=== PATIENT | male | born 1930 | race Caucasian/White ===

== ENCOUNTER → 2016-11-29 | Outpatient (CLI) | payer MEDICARE, BC ==
[~2016-11-29] MED LIST: ACET-1757 PO; ASPI-496 PO; BUPR100T11 PO; BUSP15TA PO; CLOP75TA22 PO; HYDR25TA6 PO; OXYB5TAB7 PO; POTA20PA8 PO; TAMS-11 PO
[2016-11-29 13:01] LABS: ASPARTATE AMINO TRANSFERASE 17 U/L (15-37); BLOOD UREA NITROGEN 14 mg/dL (7-18)
== END | disposition home or self-care (01) ==
LOC: CFH 08:09
PROVIDERS: ATTEND Internal Medicine
DX: I25.10 Atherosclerotic heart disease of native coronary artery without angina pectoris (principal); E78.00 Pure hypercholesterolemia, unspecified; I10 Essential (primary) hypertension
CPT/HCPCS: 36415; 80053; 80061

== ENCOUNTER → 2017-03-15 | Outpatient (CLI) | payer MEDICARE, BC ==
[~2017-03-15] MED LIST changes: -CLOP75TA22 PO; +CLOP75TA52 PO; +POTA20PA25 PO; -POTA20PA8 PO; +REGADENOSON 0.4 MG/5 ML SYRINGE ONE
== END | disposition home or self-care (01) ==
LOC: CFH 09:04
PROVIDERS: ATTEND Internal Medicine Cardiovascular Disease
DX: I10 Essential (primary) hypertension (principal)
CPT/HCPCS: 78452; 93017; A9502; J2785

== ENCOUNTER → 2018-02-09 | Outpatient (CLI) | payer MEDICARE, BC ==
[~2018-02-09] MED LIST changes: -REGADENOSON 0.4 MG/5 ML SYRINGE ONE
[2018-02-09 12:45] LABS: CHLORIDE 101 mmol/L (98-107)
[2018-02-09 13:00] LABS: ALANINE AMINOTRANSFERASE 34 U/L (12-78); ALKALINE PHOSPHATASE 88 U/L (45-117); ANION GAP 8 mmol/L (5-15); CALCIUM 9.2 mg/dL (8.5-10.1); CREATININE 0.89 mg/dL (0.7-1.3); T4 (THYROXINE) 10.3 mcg/dL (4.5-12.1); TOTAL PROTEIN 7.3 g/dL (6.4-8.2)
== END | disposition home or self-care (01) ==
LOC: CFH 08:38
PROVIDERS: ATTEND Internal Medicine Cardiovascular Disease
DX: I10 Essential (primary) hypertension (principal); I25.10 Atherosclerotic heart disease of native coronary artery without angina pectoris; E78.00 Pure hypercholesterolemia, unspecified; E78.2 Mixed hyperlipidemia; F41.8 Other specified anxiety disorders; N62 Hypertrophy of breast; R74.8 Abnormal levels of other serum enzymes; Z95.1 Presence of aortocoronary bypass graft
CPT/HCPCS: 36415; 80053; 84436; 84443; 84481

== ENCOUNTER → 2018-02-15 | Outpatient (CLI) | payer MEDICARE, BC | END | disposition home or self-care (01) | LOC: CFH 10:02 | PROVIDERS: ATTEND Internal Medicine | DX: M51.36 Other intervertebral disc degeneration, lumbar region (principal); M48.061 Spinal stenosis, lumbar region without neurogenic claudication; M54.31 Sciatica, right side | CPT/HCPCS: 72148 ==

== ENCOUNTER → 2018-03-10 | Outpatient (CLI) | payer MEDICARE, BC | END | disposition home or self-care (01) | LOC: CFH 12:55 | PROVIDERS: ATTEND Neurological Surgery | DX: M47.896 Other spondylosis, lumbar region (principal) | CPT/HCPCS: 72100 ==

== ENCOUNTER → 2018-09-29 | Outpatient (CLI) | payer MEDICARE, BC | END | disposition home or self-care (01) | LOC: CVU 10:01 | PROVIDERS: ATTEND Internal Medicine Cardiovascular Disease | DX: M79.662 Pain in left lower leg (principal); M79.661 Pain in right lower leg; I10 Essential (primary) hypertension; I25.10 Atherosclerotic heart disease of native coronary artery without angina pectoris | CPT/HCPCS: 93922 ==

== ENCOUNTER 2019-06-02 10:32 | Emergency (ER) | payer MEDICARE, BC ==
[~2019-06-02] VITALS: Ht 177.8 cm; Wt 90.0 kg
[~2019-06-02 10:32] MED LIST changes: -ACET-1757 PO; +ACET-2065 PO; +OXYB5TAB10 PO; -OXYB5TAB7 PO
[2019-06-02 10:37] VITALS: BP 141/68
--- NOTE | 2019-06-02 10:54 | NUR ---
THIS IS AN 89 YO M W/ C/O BILAT LEG SWELLING/PAIN AND WORSENING SOB. DENIES CP. PATIENTS RESPIRATIONS ARE EVEN AND UNLABORED, PATIENT IS IN NO ACUTE DISTRESS. PATIENT RESTING ON GURNEY AWAITING EVAL FROM PROVIDER. CALL LIGHT IN REACH. DENIES FURTHER NEEDS AT THIS TIME.
[2019-06-02] MEDS ORDERED: MIRA50TA PO (11:12)
[2019-06-02] MEDS ORDERED: LOSA50TA14 PO (11:12)
[2019-06-02] MEDS ORDERED: CHLO25TA PO (11:12)
--- NOTE | 2019-06-02 11:25 | NUR ---
PATIENT BRADYCARDIC AND SUSPICIOUS FOR ABSENT P WAVES WHEN PLACED ON SENIOR PROGRAMMER. NOTIFIED AND EKG ORDERED.
[2019-06-02 12:09] LABS: BASOPHILS # (AUTO) 0.02 x10^3/uL (0-0.1); BASOPHILS % (AUTO) 0 % (0-1); EOSINOPHILS # (AUTO) 0.04 x10^3/uL (0-0.4); EOSINOPHILS % (AUTO) 1 % (1-7); LYMPHOCYTES # (AUTO) 1.24 x10^3/uL (1-3.4); LYMPHOCYTES % (AUTO) 23 % (22-44); MD NO; MEAN CORPUSCULAR HEMOGLOBIN 35.2 pg (27.5-34.5); MEAN CORPUSCULAR HGB CONC 33.9 g/dL (33.2-36.2); MEAN PLATELET VOLUME 7.2 fL (7.4-10.4); MONOCYTES # (AUTO) 0.46 x10^3/uL (0.2-0.8); MONOCYTES % (AUTO) 9 % (2-9); NEUTROPHILS # (AUTO) 3.63 x10^3/uL (1.8-6.8); NEUTROPHILS % (AUTO) 67 % (42-75); PLATELET COUNT 186 x10^3/uL (130-400); RED BLOOD COUNT 3.92 x10^6/uL (4.38-5.82); RED CELL DISTRIBUTION WIDTH 13.7 % (9.4-14.8)
[2019-06-02 12:18] LABS: CALCIUM 9.3 mg/dL (8.5-10.1); CHLORIDE 105 mmol/L (98-107)
[2019-06-02 12:19] LABS: INTERNATIONAL NORMALIZED RATIO 1.1 (0.93-1.1); PROTHROMBIN TIME 11.5 Seconds (9.6-11.5)
[2019-06-02 12:35] LABS: ALANINE AMINOTRANSFERASE 37 U/L (12-78); ALKALINE PHOSPHATASE 82 U/L (45-117); ANION GAP 7 mmol/L (5-15); BILIRUBIN,TOTAL 0.7 mg/dL (0.2-1.0); CREATININE 1.02 mg/dL (0.7-1.3); TOTAL PROTEIN 7.1 g/dL (6.4-8.2)
--- NOTE | 2019-06-02 14:20 | NUR ---
PATIENT RESTING IN ROOM AWAITING MRI. DENIES FURTHER NEEDS AT THIS TIME.
--- NOTE | 2019-06-02 15:15 | NUR ---
PATIENT TO MRI.
== END 2019-06-02 16:53 | disposition home or self-care (01) ==
LOC: ED 11:26
DX: M48.00 Spinal stenosis, site unspecified (principal); R00.1 Bradycardia, unspecified; I10 Essential (primary) hypertension; Z72.89 Other problems related to lifestyle
CPT/HCPCS: 36415; 80053; 85025; 85610; 85730; 93005; 93970; 99284

== ENCOUNTER 2019-08-20 09:24 | Observation (INO) | payer MEDICARE, BC ==
[~2019-08-20] VITALS: Ht 177.8 cm; Wt 90.7 kg
[~2019-08-20 09:24] MED LIST changes: +CHLO25TA PO; +LOSA50TA14 PO; +MIRA50TA PO
[2019-08-20 09:59] VITALS: BP 173/75
[2019-08-20] MEDS ORDERED: PLEASE ENTER HEIGHT AND WEIGHT MC SCH (10:00)
[2019-08-20] MEDS ORDERED: ATOR10TA9 PO (10:05)
[2019-08-20] MEDS ORDERED: DOXY100C2 PO (10:05)
[2019-08-20] MEDS ORDERED: RIVA20TA PO (10:05)
[2019-08-20] MEDS ORDERED: [UNRECOGNIZED DRUG - OTHER] PO (10:05)
[2019-08-20] MEDS ORDERED: ACET-1600 PO (10:26)
[2019-08-20 10:35] LABS: BASOPHILS # (AUTO) 0.03 x10^3/uL (0-0.1); BASOPHILS % (AUTO) 1 % (0-1); EOSINOPHILS # (AUTO) 0.02 x10^3/uL (0-0.4); EOSINOPHILS % (AUTO) 0 % (1-7); LYMPHOCYTES # (AUTO) 0.84 x10^3/uL (1-3.4); LYMPHOCYTES % (AUTO) 15 % (22-44); MD NO; MEAN CORPUSCULAR HEMOGLOBIN 34.8 pg (27.5-34.5); MEAN CORPUSCULAR HGB CONC 33.4 g/dL (33.2-36.2); MEAN CORPUSCULAR VOLUME 104.1 fL (81-97); MEAN PLATELET VOLUME 7.4 fL (7.4-10.4); MONOCYTES # (AUTO) 0.38 x10^3/uL (0.2-0.8); MONOCYTES % (AUTO) 7 % (2-9); NEUTROPHILS # (AUTO) 4.18 x10^3/uL (1.8-6.8); NEUTROPHILS % (AUTO) 77 % (42-75); PLATELET COUNT 197 x10^3/uL (130-400); RED BLOOD COUNT 3.95 x10^6/uL (4.38-5.82); RED CELL DISTRIBUTION WIDTH 13.7 % (9.4-14.8)
[2019-08-20] MEDS ORDERED: MAGN400T36 PO (10:36)
[2019-08-20] MEDS ORDERED: OMEG-157 PO (10:36)
[2019-08-20] MEDS ORDERED: LACT1CAP35 PO (10:36)
[2019-08-20] MEDS ORDERED: CYAN2000 PO (10:36)
[2019-08-20] MEDS ORDERED: ASCO10004 PO (10:36)
[2019-08-20] MEDS ORDERED: LEUTEIN PO (10:36)
[2019-08-20] MEDS ORDERED: UBID100C24 PO (10:36)
[2019-08-20] MEDS ORDERED: Miralax PO (10:37)
[2019-08-20 10:47] LABS: ANION GAP 8 mmol/L (5-15); CALCIUM 9.2 mg/dL (8.5-10.1); CHLORIDE 104 mmol/L (98-107); CREATININE 0.87 mg/dL (0.7-1.3)
[2019-08-20] MEDS ORDERED: FENTANYL PF 100 MCG/2ML ONE (11:27)
[2019-08-20] MEDS ORDERED: MIDAZOLAM 1 MG/ML, 2ML ONE ×3 (11:27→12:11)
[2019-08-20] MEDS ORDERED: VANCOMYCIN 500 MG ONE (11:28)
[2019-08-20] MEDS ORDERED: VANCOMYCIN PMX 1GM/200ML 200 ML ONE (11:28)
[2019-08-20] MEDS ORDERED: LIDOCAINE 2%, 20ML ONE (11:28)
[2019-08-20] MEDS ORDERED: HOLD MEDICATION MC PRN (13:00)
[2019-08-20] MEDS ORDERED: ZOLPIDEM 5MG TABLET PO PRN (13:00)
[2019-08-20] MEDS ORDERED: ACETAMINOPHEN 325 MG TABLET PO PRN (13:00)
[2019-08-20] MEDS ORDERED: ONDANSETRON 2MG/ML, 2ML IV PRN (13:00)
[2019-08-20] MEDS ORDERED: BISACODYL 10 MG SUPP PR PRN (13:00)
[2019-08-20 14:01] VITALS: BP 146/81
[2019-08-20] MEDS: SODIUM CHLORIDE 0.9% 1,000 ML IV SCH ×2 (14:17→17:56)
[2019-08-20] MEDS: ACETAMINOPHEN 500 MG TABLET PO SCH ×2 (17:33→20:37)
[2019-08-20 20:31] VITALS: BP 170/86
[2019-08-20] MEDS: DOXYCYCLINE 100MG CAP PO SCH (20:36)
[2019-08-20] MEDS: SODIUM CHLORIDE FLUSH 10ML SYR IVF SCH (20:36)
[2019-08-20] MEDS: TAMSULOSIN 0.4 MG CAP.ER.24H PO SCH (20:36)
[2019-08-20] MEDS ORDERED: ATORVASTATIN 10 MG TABLET PO SCH (21:00)
[2019-08-20] MEDS ORDERED: VANCOMYCIN PMX 1GM/200ML 200 ML IVPB SCH (23:00)
[2019-08-21] MEDS: SODIUM CHLORIDE 0.9% 1,000 ML IV SCH ×2 (01:51→08:19)
[2019-08-21 02:19] VITALS: BP 172/80
[2019-08-21 07:36] VITALS: BP 181/90
[2019-08-21] MEDS: ACETAMINOPHEN 500 MG TABLET PO SCH (08:18)
[2019-08-21] MEDS: SODIUM CHLORIDE FLUSH 10ML SYR IVF SCH (08:19)
[2019-08-21] MEDS: TAMSULOSIN 0.4 MG CAP.ER.24H PO SCH (08:19)
[2019-08-21] MEDS: DOXYCYCLINE 100MG CAP PO SCH (08:19)
[2019-08-21] MEDS ORDERED: BUPROPION SR 150 MG TABLET PO SCH (09:00)
[2019-08-21] MEDS ORDERED: LOSARTAN 50MG TABLET PO SCH (09:00)
[2019-08-21] MEDS ORDERED: POTASSIUM CHLORIDE 20 MEQ PACKET PO SCH (09:00)
[2019-08-21] MEDS ORDERED: CHLORTHALIDONE 25 MG TABLET PO SCH (09:00)
[2019-08-21 10:00] VITALS: BP 180/77
[2019-08-21 10:20] VITALS: BP 184/80
== END 2019-08-21 13:01 | disposition home or self-care (01) ==
LOC: CACL 09:24 → 5SO 12:59 → CACL 15:51
PROVIDERS: ADMIT Internal Medicine Cardiovascular Disease; ATTEND Internal Medicine Cardiovascular Disease
DX: I44.1 Atrioventricular block, second degree (principal); I10 Essential (primary) hypertension; E78.5 Hyperlipidemia, unspecified; Z95.1 Presence of aortocoronary bypass graft; I25.10 Atherosclerotic heart disease of native coronary artery without angina pectoris; Z79.01 Long term (current) use of anticoagulants; E78.00 Pure hypercholesterolemia, unspecified
CPT/HCPCS: 33208; 36415; 71045; 71046; 80048; 85025; 93005; 96365; 99156; 99157; C1779; C1785; C1892; G0378; J2250; J3010; J3370; J3490

== ENCOUNTER → 2019-11-01 | Outpatient (CLI) | payer MEDICARE, BC ==
[~2019-11-01] MED LIST changes: +ACET-1600 PO; +ASCO10004 PO; +ATOR10TA9 PO; +CYAN2000 PO; +DOXY100C2 PO; +LACT1CAP35 PO; +LEUTEIN PO; +MAGN400T36 PO; +Miralax PO; +OMEG-157 PO; +OMNIPAQUE 350 MG/ML, 100ML BOTTLE ONE; +RIVA20TA PO; +UBID100C24 PO; +[UNRECOGNIZED DRUG - OTHER] PO
== END | disposition home or self-care (01) ==
LOC: CFH 13:17
PROVIDERS: ATTEND Internal Medicine
DX: K40.90 Unilateral inguinal hernia, without obstruction or gangrene, not specified as recurrent (principal); I48.0 Paroxysmal atrial fibrillation; K76.0 Fatty (change of) liver, not elsewhere classified; K76.89 Other specified diseases of liver; M51.36 Other intervertebral disc degeneration, lumbar region; E78.2 Mixed hyperlipidemia; I11.9 Hypertensive heart disease without heart failure; I50.9 Heart failure, unspecified
CPT/HCPCS: 74177; 82565; Q9967

== ENCOUNTER → 2020-07-31 | Outpatient (CLI) | payer MEDICARE, BC ==
[~2020-07-31] MED LIST changes: +ASCO100018 PO; -ASCO10004 PO; -OMNIPAQUE 350 MG/ML, 100ML BOTTLE ONE
[2020-07-31 16:52] LABS: ALBUMIN 4.3 g/dL (3.4-5.0); ANION GAP 8 mmol/L (5-15); CALCIUM 9.3 mg/dL (8.5-10.1); CHLORIDE 97 mmol/L (98-107)
[2020-07-31 16:56] LABS: ALANINE AMINOTRANSFERASE 36 U/L (12-78); ALKALINE PHOSPHATASE 103 U/L (45-117); BILIRUBIN,TOTAL 1.3 mg/dL (0.2-1.0); CREATININE 1.12 mg/dL (0.7-1.3); TOTAL PROTEIN 7.7 g/dL (6.4-8.2)
== END | disposition home or self-care (01) ==
LOC: STAR 14:52
PROVIDERS: ATTEND Surgery
DX: Z01.812 Encounter for preprocedural laboratory examination (principal); Z20.822 Contact with and (suspected) exposure to COVID-19; K40.90 Unilateral inguinal hernia, without obstruction or gangrene, not specified as recurrent
CPT/HCPCS: 36415; 80053; 93005; U0003

== ENCOUNTER 2020-08-05 07:18 | Day surgery (SDC) | payer MEDICARE, BC ==
[~2020-08-05] VITALS: Ht 175.3 cm; Wt 84.7 kg
[2020-08-05] MEDS ORDERED: LACTATED RINGERS 1,000 ML IV SCH (08:00)
[2020-08-05] MEDS ORDERED: CHLORHEXIDINE 15 ML UDC MM ONE (08:00)
[2020-08-05] MEDS ORDERED: CHLORHEXIDINE 15 ML UDC ONE (08:11)
[2020-08-05] MEDS ORDERED: BUPIVACAINE/PF-EPI 0.5% 1:200K ONE (08:15)
[2020-08-05] MEDS ORDERED: ROCURONIUM 10 MG/ML,10ML ONE (08:30)
[2020-08-05] MEDS ORDERED: PROPOFOL 50 ML ONE ×2 (08:34→09:17)
[2020-08-05] MEDS ORDERED: FENTANYL PF 250 MCG/5ML ONE (08:36)
[2020-08-05] MEDS ORDERED: CEFAZOLIN 1,000 MG ONE (08:44)
[2020-08-05] MEDS ORDERED: ONDANSETRON 2MG/ML, 2ML ONE (08:45)
[2020-08-05] MEDS ORDERED: SUCCINYLCHOLINE 20 MG/ML, 10ML ONE (08:45)
[2020-08-05] MEDS ORDERED: PROPOFOL 10 MG/ML, 20ML ONE (08:45)
[2020-08-05] MEDS ORDERED: EPHEDRINE 50 MG/ML, 1ML IVPush PRN (09:00)
[2020-08-05] MEDS ORDERED: ACETAMINOPHEN 325 MG TABLET PO PRN (09:00)
[2020-08-05] MEDS ORDERED: ONDANSETRON 2MG/ML, 2ML IVPush PRN ×2 (09:00→09:30)
[2020-08-05] MEDS ORDERED: DIAZEPAM 5 MG/ML, 2ML IVPush PRN (09:00)
[2020-08-05] MEDS ORDERED: DIPHENHYDRAMINE 50 MG/ML, 1ML IVPush PRN (09:00)
[2020-08-05] MEDS ORDERED: OXYcodone 5 MG/5 ML ORAL.SOL UDC PO PRN ×2 (09:00→09:30)
[2020-08-05] MEDS ORDERED: HYDROmorphone 1 MG/ML, 1ML INJ IVPush PRN (09:00)
[2020-08-05] MEDS ORDERED: EPHEDRINE 50 MG/ML, 1ML IM PRN (09:00)
[2020-08-05] MEDS ORDERED: PROMETHAZINE 25 MG/ML, 1ML IVPush PRN (09:00)
[2020-08-05] MEDS ORDERED: LABETALOL 5MG/ML, 20ML IV PRN (09:00)
[2020-08-05] MEDS ORDERED: OXYC5TAB2 PO (09:29)
[2020-08-05] MEDS ORDERED: FENTANYL PF 100 MCG/2ML ONE (09:48)
[2020-08-05] MEDS: FENTANYL PF 100 MCG/2ML IV PRN ×2 (09:50→09:56)
[2020-08-05] MEDS ORDERED: ACETAMINOPHEN 650 MG/20.3 ML UDC ONE (09:57)
[2020-08-05] MEDS ORDERED: OXYcodone 5 MG/5 ML ORAL.SOL UDC ONE (09:58)
== END 2020-08-05 12:40 | disposition home or self-care (01) ==
LOC: OUT 07:18
PROVIDERS: ATTEND Surgery
DX: K40.90 Unilateral inguinal hernia, without obstruction or gangrene, not specified as recurrent (principal); I10 Essential (primary) hypertension; I25.2 Old myocardial infarction; M19.90 Unspecified osteoarthritis, unspecified site; Z79.01 Long term (current) use of anticoagulants; Z79.899 Other long term (current) drug therapy; Z95.0 Presence of cardiac pacemaker; Z96.653 Presence of artificial knee joint, bilateral; Z98.890 Other specified postprocedural states
CPT/HCPCS: 49650; C1781; J0330; J0690; J2405; J2704; J3010; J7120